=== PATIENT | male | born 1960 | race Caucasian/White ===

== ENCOUNTER 2021-01-17 09:22 | Inpatient (IN) | payer MEDICAID ==
[~2021-01-17] VITALS: Ht 167.6 cm; Wt 93.9 kg
[~2021-01-17 09:22] MED LIST: LISI10TA27 PO; METF-436 PO; METF-950 PO
[2021-01-17 09:54] LABS: BASOPHILS # (AUTO) 0.1 X10'3 (0-0.2); BASOPHILS % (AUTO) 0.8 % (0-1); EOSINOPHILS # (AUTO) 0.1 X10'3 (0-0.9); EOSINOPHILS % (AUTO) 1.7 % (0-6); HEMOGLOBIN 15.2 g/dl (14.0-17.9); LYMPHOCYTES # (AUTO) 0.8 X10'3 (1.1-4.8); LYMPHOCYTES % (AUTO) 11.2 % (21-51); MEAN CORPUSCULAR HEMOGLOBIN 30.3 PG (27.0-31.0); MEAN CORPUSCULAR HGB CONC 32.3 g/dL (33.0-36.5); MEAN PLATELET VOLUME 8.1 FL (7.4-10.4); MONOCYTES # (AUTO) 0.7 X10'3 (0-0.9); MONOCYTES % (AUTO) 9.2 % (2-12); NEUTROPHILS # (AUTO) 5.7 X10'3 (1.8-7.7); NEUTROPHILS % (AUTO) 77.1 % (42-75); PLATELET COUNT 246 X10'3 (140-440); RED CELL DISTRIBUTION WIDTH 15.2 % (11.5-14.5); WHITE BLOOD COUNT 7.4 X10'3 (4.5-11.0)
[2021-01-17 10:08] LABS: ALANINE AMINOTRANSFERASE 31 U/L (12-78); ALBUMIN 3.7 G/DL (3.4-5.0); ALBUMIN/GLOBULIN RATIO 0.9 (1.1-1.5); ALKALINE PHOSPHATASE 105 IU/L (46-116); ANION GAP 12 (8-16); ASPARTATE AMINO TRANSFERASE 40 U/L (10-37); BILIRUBIN,TOTAL 1.2 MG/DL (0.1-1.0); BLOOD UREA NITROGEN 21 MG/DL (7-18); BUN/CREATININE RATIO 17.6 (5.4-32.0); CALCIUM 8.3 MG/DL (8.5-10.1); CHLORIDE 106 MMOL/L (99-107); CREATININE 1.19 MG/DL (0.60-1.10); GLUCOSE 135 MG/DL (70-104); SODIUM 144 MMOL/L (135-145); TOTAL CARBON DIOXIDE 26.3 MMOL/L (24-32); TOTAL PROTEIN 7.6 G/DL (6.4-8.2); eGFR 63 ML/MIN
[2021-01-17] MEDS ORDERED: nitroGLYCERIN 0.1mg/hour patch TD STA (10:26)
[2021-01-17] MEDS ORDERED: aspirin 325mg tablet PO ONE (10:30)
[2021-01-17] MEDS ORDERED: furosemide 10 MG/1 ML 10ml inj IV ONE (10:40)
[2021-01-17] MEDS ORDERED: magnesium 4gm in 100ml NS 100 ML IV PRN (11:50)
[2021-01-17] MEDS ORDERED: mag hydrox/Alum hydrox/simeth 30ml oral suspension PO PRN (11:50)
[2021-01-17] MEDS ORDERED: dextrose ORAL solution 15 GM/59 ML bottle PO PRN ×2 (11:50)
[2021-01-17] MEDS ORDERED: MESSAGE TO PHARMACY PO ONE (11:50)
[2021-01-17] MEDS ORDERED: magnesium hydroxide 30ml (MOM) UD suspension PO PRN (11:50)
[2021-01-17] MEDS ORDERED: HYDROcodone/acetaminophen 5mg/325mg tablet PO PRN (11:50)
[2021-01-17] MEDS ORDERED: HYDROcodone/acetaminophen 10/325mg tab PO PRN (11:50)
[2021-01-17] MEDS ORDERED: ondansetron/PF 4mg/2ml inj IV PRN (11:50)
[2021-01-17] MEDS ORDERED: magnesium 2GM in 50ml NS 50 ML IV PRN (11:50)
[2021-01-17] MEDS ORDERED: glucagon, human recombinant 1mg kit SUBCUT PRN (11:50)
[2021-01-17] MEDS ORDERED: potassium Cl 20 mEq SR tablet PO PRN (11:50)
[2021-01-17] MEDS ORDERED: magnesium Cl slow-release 64mg tablet PO PRN (11:50)
[2021-01-17] MEDS ORDERED: dextrose 50%-water 50ml dispensing syringe IV PRN ×2 (11:50)
[2021-01-17] MEDS ORDERED: insulin Lispro (HumaLOG) vial - multi-dose SQ SCH (11:50)
[2021-01-17] MEDS ORDERED: acetaminophen 325mg tablet PO PRN ×2 (11:50)
[2021-01-17] MEDS ORDERED: potassium Cl 40MEQ/1/2NS 520ml 520 ML IV PRN ×2 (11:50)
[2021-01-17 12:19] LABS: HEMOGLOBIN A1C 6.5 % (4.5-6.2)
[2021-01-17] MEDS ORDERED: METF-950 PO (12:23)
--- NOTE | 2021-01-17 14:06 | NUR ---
ECHO AT BEDSIDE
[2021-01-17 15:00] VITALS: BP 188/124
[2021-01-17 16:00] VITALS: BP 185/132
--- NOTE | 2021-01-17 16:00 | NUR ---
Dr Olivarez notified of B/P 188/929
[2021-01-17] MEDS: metoprolol tartrate 12.5mg (1/2 tablet) PO SCH ×2 (17:35→19:28)
[2021-01-17 18:00] VITALS: BP 176/128
--- NOTE | 2021-01-17 18:00 | NUR ---
b/p 190/143 Dr Olivarez notified
[2021-01-17 18:19] LABS: URINE AMPHETAMINE SCREEN NEGATIVE (Neg); URINE BARBITUATE SCREEN NEGATIVE (Neg); URINE BENZODIAZEPINES SCREEN NEGATIVE (Neg); URINE CANNABINOID SCREEN POSITIVE (Neg); URINE COCAINE SCREEN NEGATIVE (Neg); URINE METHADONE SCREEN NEGATIVE (Neg); URINE OPIATE SCREEN NEGATIVE (Neg); URINE PHENCYCLIDINE SCREEN NEGATIVE (Neg)
--- NOTE | 2021-01-17 18:23 | NUR ---
Patient in room PCU 3024B. I have received report from ISSAC Delgado and had the opportunity to ask questions and assume patient care.
[2021-01-17] MEDS: K and/or MAG REPLACEMENT MC SCH (19:17)
[2021-01-17 19:20] VITALS: BP 162/94
[2021-01-17] MEDS: furosemide 40mg/4ml inj IV SCH (19:28)
[2021-01-17] MEDS ORDERED: metoprolol tartrate 12.5mg (1/2 tablet) PO SCH (20:00)
[2021-01-17] MEDS: insulin glargine (Lantus) pen - multi-dose SQ SCH (21:00)
[2021-01-17] MEDS ORDERED: temazepam 15mg capsule PO PRN (21:00)
[2021-01-17 22:00] VITALS: BP 151/89
[2021-01-17 22:21] LABS: PARTIAL THROMBOPLASTIN TIME 30 SECONDS (22-32)
[2021-01-18] VITALS (10 sets, daily range): BP systolic 116–165; BP diastolic 98–121
[2021-01-18 06:25] LABS: BASOPHILS # (AUTO) 0.1 X10'3 (0-0.2); BASOPHILS % (AUTO) 1.1 % (0-1); EOSINOPHILS # (AUTO) 0.2 X10'3 (0-0.9); EOSINOPHILS % (AUTO) 3.3 % (0-6); HEMATOCRIT 43.2 % (42.0-52.0); HEMOGLOBIN 14.2 g/dl (14.0-17.9); LYMPHOCYTES # (AUTO) 0.9 X10'3 (1.1-4.8); LYMPHOCYTES % (AUTO) 18.3 % (21-51); MEAN CORPUSCULAR HEMOGLOBIN 30.1 PG (27.0-31.0); MEAN CORPUSCULAR HGB CONC 32.8 g/dL (33.0-36.5); MEAN CORPUSCULAR VOLUME 91.7 FL (78-98); MEAN PLATELET VOLUME 8.3 FL (7.4-10.4); MONOCYTES # (AUTO) 0.6 X10'3 (0-0.9); MONOCYTES % (AUTO) 12.3 % (2-12); NEUTROPHILS # (AUTO) 3.3 X10'3 (1.8-7.7); PLATELET COUNT 203 X10'3 (140-440); RED BLOOD COUNT 4.71 X10'6 (4.70-6.10); RED CELL DISTRIBUTION WIDTH 15.1 % (11.5-14.5); WHITE BLOOD COUNT 5.1 X10'3 (4.5-11.0)
--- NOTE | 2021-01-18 06:44 | NUR ---
Problems reprioritized. Patient report given, questions answered & plan of care reviewed with ISSAC Cedillo.
--- NOTE | 2021-01-18 06:52 | NUR ---
Patient in room PCU 3024. I have received report from Julia DAVENPORT and had the opportunity to ask questions and assume patient care.
[2021-01-18 06:58] LABS: ALANINE AMINOTRANSFERASE 26 U/L (12-78); ALBUMIN 3.2 G/DL (3.4-5.0); ALKALINE PHOSPHATASE 87 IU/L (46-116); ANION GAP 10 (8-16); ASPARTATE AMINO TRANSFERASE 27 U/L (10-37); BILIRUBIN,TOTAL 1.4 MG/DL (0.1-1.0); BLOOD UREA NITROGEN 18 MG/DL (7-18); BUN/CREATININE RATIO 16.4 (5.4-32.0); CALCIUM 8.5 MG/DL (8.5-10.1); CHLORIDE 107 MMOL/L (99-107); CHOL/HDL RATIO 4.6 (0.00-4.99); CHOLESTEROL 119 MG/DL (0-200); GLUCOSE 108 MG/DL (70-104); HDL CHOLESTEROL 26 MG/DL (35-60); LDL CHOLESTEROL 86 MG/DL (50-100); MAGNESIUM 1.9 MG/DL (1.5-2.4); POTASSIUM 3.3 MMOL/L (3.5-5.1); SODIUM 143 MMOL/L (135-145); TOTAL CARBON DIOXIDE 26.4 MMOL/L (24-32); TOTAL PROTEIN 6.5 G/DL (6.4-8.2); TRIGLYCERIDES 57 MG/DL (20-135); eGFR 69 ML/MIN
[2021-01-18] MEDS ORDERED: lisinopril 20mg tablet PO SCH (08:00)
[2021-01-18] MEDS: K and/or MAG REPLACEMENT MC SCH ×2 (08:00→19:52)
[2021-01-18] MEDS ORDERED: aspirin 325mg tablet PO SCH (08:30)
[2021-01-18] MEDS: aspirin 81mg tablet.DR PO SCH (09:38)
[2021-01-18] MEDS: potassium Cl 20 mEq SR tablet PO PRN ×3 (09:39→19:53)
[2021-01-18] MEDS: furosemide 40mg/4ml inj IV SCH ×2 (09:39→19:51)
[2021-01-18] MEDS: enoxaparin 40mg/0.4ml syringe SUBCUT SCH (09:39)
--- NOTE | 2021-01-18 11:00 | NUR ---
Dr Mclain at bedside, report given re: pt's blood pressure trend - high at times, breath sounds diminished at bases, abdomen distended/firm, pt c/o mild lightheadedness after ambulating approx 300 ft and returned to room. Orders received. Will continue to monitor.
--- NOTE | 2021-01-18 17:09 | NUR ---
PAGER ID: [phone] MESSAGE: re: [email or web address], Jon Tavarez Pt's orthostatic BPs for 1500: 143/113 HR 76 (lying), 116/110,HR 78 (sitting), 163/121 HR 82 (standing). manual recheck 150/110 HR 78 (lying). Orders? thank you, Nguyen [id number]
[2021-01-18] MEDS ORDERED: lisinopril 20mg tablet PO ONE (17:40)
[2021-01-18] MEDS ORDERED: hydrALAZINE 20mg/ml inj. IV PRN (17:40)
--- NOTE | 2021-01-18 17:40 | NUR ---
Phone call from Dr Mclain - further discussion re: pt's BP's and orthostatics. stated he would look at meds. orders PRN. Will continue to monitor.
--- NOTE | 2021-01-18 18:36 | NUR ---
Problems reprioritized. Patient report given, questions answered & plan of care reviewed with Stephenie DAVENPORT.
--- NOTE | 2021-01-18 18:43 | NUR ---
I have received report from Nguyen DAVENPORT and had the opportunity to ask questions and assume patient care.
[2021-01-18] MEDS: carVEDilol 3.125mg tablet PO SCH (19:53)
[2021-01-18] MEDS: insulin glargine (Lantus) pen - multi-dose SQ SCH (21:00)
[2021-01-19] VITALS (9 sets, daily range): BP systolic 137–171; BP diastolic 81–124
--- NOTE | 2021-01-19 06:25 | NUR ---
Problems reprioritized. Patient report given, questions answered & plan of care reviewed with Romina DAVENPORT.
[2021-01-19 07:05] LABS: BASOPHILS % (AUTO) 0.9 % (0-1); EOSINOPHILS # (AUTO) 0.2 X10'3 (0-0.9); EOSINOPHILS % (AUTO) 3.1 % (0-6); HEMATOCRIT 43.1 % (42.0-52.0); HEMOGLOBIN 14.3 g/dl (14.0-17.9); LYMPHOCYTES # (AUTO) 0.9 X10'3 (1.1-4.8); LYMPHOCYTES % (AUTO) 17.5 % (21-51); MEAN CORPUSCULAR HEMOGLOBIN 30.3 PG (27.0-31.0); MEAN CORPUSCULAR HGB CONC 33.2 g/dL (33.0-36.5); MEAN CORPUSCULAR VOLUME 91.3 FL (78-98); MEAN PLATELET VOLUME 8.4 FL (7.4-10.4); MONOCYTES # (AUTO) 0.6 X10'3 (0-0.9); MONOCYTES % (AUTO) 11.9 % (2-12); NEUTROPHILS # (AUTO) 3.4 X10'3 (1.8-7.7); NEUTROPHILS % (AUTO) 66.6 % (42-75); PLATELET COUNT 199 X10'3 (140-440); RED BLOOD COUNT 4.72 X10'6 (4.70-6.10); RED CELL DISTRIBUTION WIDTH 15.1 % (11.5-14.5); WHITE BLOOD COUNT 5.2 X10'3 (4.5-11.0)
[2021-01-19] MEDS: carVEDilol 3.125mg tablet PO SCH ×2 (07:14→21:24)
[2021-01-19] MEDS: aspirin 81mg tablet.DR PO SCH (07:14)
[2021-01-19] MEDS: lisinopril 20mg tablet PO SCH (07:15)
[2021-01-19] MEDS: enoxaparin 40mg/0.4ml syringe SUBCUT SCH (07:16)
[2021-01-19] MEDS: furosemide 40mg/4ml inj IV SCH ×2 (07:17→21:23)
[2021-01-19 07:18] LABS: ALANINE AMINOTRANSFERASE 24 U/L (12-78); ALBUMIN 3.3 G/DL (3.4-5.0); ALBUMIN/GLOBULIN RATIO 0.9 (1.1-1.5); ALKALINE PHOSPHATASE 92 IU/L (46-116); ANION GAP 7 (8-16); ASPARTATE AMINO TRANSFERASE 23 U/L (10-37); BILIRUBIN,TOTAL 1.3 MG/DL (0.1-1.0); BLOOD UREA NITROGEN 22 MG/DL (7-18); BUN/CREATININE RATIO 17.9 (5.4-32.0); CALCIUM 8.8 MG/DL (8.5-10.1); CHLORIDE 106 MMOL/L (99-107); CREATININE 1.23 MG/DL (0.60-1.10); GLUCOSE 109 MG/DL (70-104); MAGNESIUM 1.9 MG/DL (1.5-2.4); POTASSIUM 3.4 MMOL/L (3.5-5.1); SODIUM 143 MMOL/L (135-145); TOTAL CARBON DIOXIDE 29.6 MMOL/L (24-32); TOTAL PROTEIN 6.9 G/DL (6.4-8.2); eGFR 60 ML/MIN
[2021-01-19] MEDS: K and/or MAG REPLACEMENT MC SCH ×2 (08:54→20:00)
[2021-01-19] MEDS: potassium Cl 20 mEq SR tablet PO PRN ×3 (08:54→17:28)
[2021-01-19] MEDS: hydrALAZINE 25 MG tablet PO SCH ×2 (09:55→16:05)
--- NOTE | 2021-01-19 12:44 | NUR ---
blood pressure still high. Dr Calvin aware. Hydralizine was given as scheduled med earlier in day so he said to wait on giving iv prn hydralizine and he will make some changes on emar to help. Recheck bp is 171/112, i will page him with this info.
[2021-01-19] MEDS ORDERED: carVEDilol 3.125mg tablet PO ONE (12:50)
--- NOTE | 2021-01-19 18:34 | NUR ---
Report given to Roni DAVENPORT. All questions answered. Pt in bed watching tv
[2021-01-19] MEDS: insulin glargine (Lantus) pen - multi-dose SQ SCH (21:00)
[2021-01-20 02:00] VITALS: BP 138/91
[2021-01-20] MEDS: hydrALAZINE 25 MG tablet PO SCH ×2 (02:51→07:53)
[2021-01-20 07:00] VITALS: BP 164/119
[2021-01-20] MEDS: lisinopril 20mg tablet PO SCH (07:52)
[2021-01-20] MEDS: carVEDilol 3.125mg tablet PO SCH (07:53)
[2021-01-20] MEDS: aspirin 81mg tablet.DR PO SCH (07:53)
[2021-01-20] MEDS: enoxaparin 40mg/0.4ml syringe SUBCUT SCH (07:54)
[2021-01-20] MEDS: furosemide 40mg/4ml inj IV SCH (07:56)
[2021-01-20 08:00] VITALS: BP_SYST 133; BP_SYST 135; BP_SYST 140; BP_DIAS 82; BP_DIAS 92; BP_DIAS 97
[2021-01-20] MEDS: K and/or MAG REPLACEMENT MC SCH (08:00)
[2021-01-20 08:07] LABS: BASOPHILS # (AUTO) 0.1 X10'3 (0-0.2); BASOPHILS % (AUTO) 1.2 % (0-1); EOSINOPHILS # (AUTO) 0.2 X10'3 (0-0.9); EOSINOPHILS % (AUTO) 4.4 % (0-6); HEMATOCRIT 41.5 % (42.0-52.0); HEMOGLOBIN 13.7 g/dl (14.0-17.9); LYMPHOCYTES # (AUTO) 0.8 X10'3 (1.1-4.8); LYMPHOCYTES % (AUTO) 17.3 % (21-51); MEAN CORPUSCULAR HEMOGLOBIN 30.3 PG (27.0-31.0); MEAN CORPUSCULAR VOLUME 91.7 FL (78-98); MEAN PLATELET VOLUME 8.3 FL (7.4-10.4); MONOCYTES # (AUTO) 0.6 X10'3 (0-0.9); MONOCYTES % (AUTO) 13.9 % (2-12); NEUTROPHILS # (AUTO) 2.7 X10'3 (1.8-7.7); NEUTROPHILS % (AUTO) 63.2 % (42-75); PLATELET COUNT 183 X10'3 (140-440); RED BLOOD COUNT 4.52 X10'6 (4.70-6.10); RED CELL DISTRIBUTION WIDTH 15.3 % (11.5-14.5); WHITE BLOOD COUNT 4.3 X10'3 (4.5-11.0)
[2021-01-20 08:18] LABS: ALANINE AMINOTRANSFERASE 20 U/L (12-78); ALBUMIN 3.2 G/DL (3.4-5.0); ALBUMIN/GLOBULIN RATIO 0.9 (1.1-1.5); ALKALINE PHOSPHATASE 94 IU/L (46-116); ANION GAP 4 (8-16); ASPARTATE AMINO TRANSFERASE 24 U/L (10-37); BILIRUBIN,TOTAL 1.4 MG/DL (0.1-1.0); BLOOD UREA NITROGEN 24 MG/DL (7-18); BUN/CREATININE RATIO 18.6 (5.4-32.0); CALCIUM 8.3 MG/DL (8.5-10.1); CHLORIDE 106 MMOL/L (99-107); CREATININE 1.29 MG/DL (0.60-1.10); GLUCOSE 115 MG/DL (70-104); MAGNESIUM 2.1 MG/DL (1.5-2.4); POTASSIUM 3.9 MMOL/L (3.5-5.1); SODIUM 143 MMOL/L (135-145); TOTAL CARBON DIOXIDE 32.8 MMOL/L (24-32); TOTAL PROTEIN 6.6 G/DL (6.4-8.2); eGFR 57 ML/MIN
[2021-01-20 11:00] VITALS: BP 155/112
[2021-01-20] MEDS ORDERED: HYDR-4069 PO (11:45)
[2021-01-20] MEDS ORDERED: ASPI-1071 PO (11:45)
[2021-01-20] MEDS ORDERED: LISI20TA28 PO (11:45)
[2021-01-20] MEDS ORDERED: METF-950 PO (11:45)
[2021-01-20] MEDS ORDERED: COR3.125T PO (11:45)
[2021-01-20] MEDS ORDERED: FURO20TA4 PO (11:45)
[2021-01-20] MEDS ORDERED: SPIR25TA5 PO (11:46)
== END 2021-01-20 13:28 | disposition home or self-care (01) | DRG 190 ==
LOC: ER 09:23 → ED HOLD 11:46 → PCU 3S 14:53
PROVIDERS: ADMIT Family Medicine; ATTEND Family Medicine
DX: I21.4 Non-ST elevation (NSTEMI) myocardial infarction (principal); I50.21 Acute systolic (congestive) heart failure; E11.22 Type 2 diabetes mellitus with diabetic chronic kidney disease; I42.9 Cardiomyopathy, unspecified; I13.0 Hypertensive heart and chronic kidney disease with heart failure and stage 1 through stage 4 chronic kidney disease, or unspecified chronic kidney disease; F17.210 Nicotine dependence, cigarettes, uncomplicated; Z60.2 Problems related to living alone; N18.9 Chronic kidney disease, unspecified; Z20.822 Contact with and (suspected) exposure to COVID-19; Z59.0 Homelessness; Z82.3 Family history of stroke; Z82.49 Family history of ischemic heart disease and other diseases of the circulatory system; Z83.3 Family history of diabetes mellitus; Z79.899 Other long term (current) drug therapy; Z71.6 Tobacco abuse counseling
CPT/HCPCS: 36415; 71045; 80053; 80061; 80305; 82948; 83036; 83735; 83880; 84443; 84484; 85025; 85610; 85730; 87081; 87635; 93005; 93306; 93975; 96374; 96375; 99285; C9803; G0378; J1650; J1815; J1940

== ENCOUNTER 2021-04-07 19:24 | Inpatient (IN) | payer MEDICAID ==
[~2021-04-07] VITALS: Ht 167.6 cm; Wt 94.1 kg
[~2021-04-07 19:24] MED LIST changes: +ASPI-1071 PO; +COR3.125T PO; +FURO20TA4 PO; +HYDR-4069 PO; -LISI10TA27 PO; +LISI20TA28 PO; +SPIR25TA5 PO
[2021-04-07] MEDS ORDERED: furosemide 40mg/4ml inj IV ONE (20:25)
[2021-04-07 20:28] LABS: BASOPHILS # (AUTO) 0.1 X10'3 (0-0.2); BASOPHILS % (AUTO) 1.4 % (0-1); EOSINOPHILS # (AUTO) 0.2 X10'3 (0-0.9); EOSINOPHILS % (AUTO) 4.4 % (0-6); HEMATOCRIT 40.7 % (42.0-52.0); HEMOGLOBIN 13.4 g/dl (14.0-17.9); LYMPHOCYTES # (AUTO) 0.7 X10'3 (1.1-4.8); LYMPHOCYTES % (AUTO) 13.5 % (21-51); MEAN CORPUSCULAR HEMOGLOBIN 28.3 PG (27.0-31.0); MEAN CORPUSCULAR HGB CONC 32.8 g/dL (33.0-36.5); MEAN CORPUSCULAR VOLUME 86.1 FL (78-98); MEAN PLATELET VOLUME 7.9 FL (7.4-10.4); MONOCYTES # (AUTO) 0.7 X10'3 (0-0.9); MONOCYTES % (AUTO) 12.2 % (2-12); NEUTROPHILS # (AUTO) 3.8 X10'3 (1.8-7.7); NEUTROPHILS % (AUTO) 68.5 % (42-75); PLATELET COUNT 134 X10'3 (140-440); RED BLOOD COUNT 4.73 X10'6 (4.70-6.10); RED CELL DISTRIBUTION WIDTH 18.9 % (11.5-14.5); WHITE BLOOD COUNT 5.5 X10'3 (4.5-11.0)
[2021-04-07 20:50] LABS: ALANINE AMINOTRANSFERASE 17 U/L (12-78); ALBUMIN 3.2 G/DL (3.4-5.0); ALBUMIN/GLOBULIN RATIO 0.9 (1.1-1.5); ALKALINE PHOSPHATASE 90 IU/L (46-116); ANION GAP 8 (8-16); ASPARTATE AMINO TRANSFERASE 24 U/L (10-37); BILIRUBIN,TOTAL 1.8 MG/DL (0.1-1.0); BLOOD UREA NITROGEN 20 MG/DL (7-18); BUN/CREATININE RATIO 15.5 (5.4-32.0); CALCIUM 8.4 MG/DL (8.5-10.1); CHLORIDE 108 MMOL/L (99-107); CREATININE 1.29 MG/DL (0.60-1.10); GLUCOSE 126 MG/DL (70-104); POTASSIUM 4.4 MMOL/L (3.5-5.1); SODIUM 144 MMOL/L (135-145); TOTAL PROTEIN 6.8 G/DL (6.4-8.2); eGFR 57 ML/MIN
[2021-04-07 20:56] LABS: TROPONIN I < 0.04 NG/ML (0.0-0.05)
[2021-04-07] MEDS ORDERED: ondansetron/PF 4mg/2ml inj IV PRN (22:25)
[2021-04-07] MEDS ORDERED: magnesium hydroxide 30ml (MOM) UD suspension PO PRN (22:25)
[2021-04-07] MEDS ORDERED: acetaminophen 325mg tablet PO PRN (22:25)
[2021-04-07] MEDS ORDERED: potassium Cl 20 mEq SR tablet PO PRN ×2 (22:25)
[2021-04-07] MEDS ORDERED: potassium Cl 40MEQ/1/2NS 520ml 520 ML IV PRN ×2 (22:25)
[2021-04-07] MEDS ORDERED: mag hydrox/Alum hydrox/simeth 30ml oral suspension PO PRN (22:25)
[2021-04-07] MEDS ORDERED: MESSAGE TO PHARMACY PO ONE (22:30)
[2021-04-07] MEDS ORDERED: insulin Lispro (HumaLOG) vial - multi-dose SQ SCH (22:30)
[2021-04-07] MEDS ORDERED: dextrose ORAL solution 15 GM/59 ML bottle PO PRN ×2 (22:30)
[2021-04-07] MEDS ORDERED: glucagon, human recombinant 1mg kit SUBCUT PRN (22:30)
[2021-04-07] MEDS ORDERED: dextrose 50%-water 50ml dispensing syringe IV PRN ×2 (22:30)
[2021-04-07 23:09] LABS: HEMOGLOBIN A1C 7.5 % (4.5-6.2)
[2021-04-08] MEDS: carVEDilol 12.5mg tablet PO SCH ×3 (01:06→20:31)
[2021-04-08] MEDS ORDERED: LISI-790 PO (04:12)
[2021-04-08] MEDS ORDERED: SPIR25TA5 PO (04:13)
[2021-04-08] MEDS ORDERED: CARV-50 PO (04:16)
[2021-04-08] MEDS ORDERED: FURO-150 PO (04:18)
[2021-04-08] MEDS ORDERED: ASPI-1397 PO (04:19)
[2021-04-08] MEDS ORDERED: FAMO20TA8 PO (04:19)
[2021-04-08] MEDS ORDERED: APIX5TAB3 PO (04:19)
[2021-04-08 04:59] LABS: BASOPHILS # (AUTO) 0.1 X10'3 (0-0.2); BASOPHILS % (AUTO) 1.2 % (0-1); EOSINOPHILS # (AUTO) 0.2 X10'3 (0-0.9); EOSINOPHILS % (AUTO) 4.4 % (0-6); HEMATOCRIT 40.8 % (42.0-52.0); HEMOGLOBIN 13.4 g/dl (14.0-17.9); LYMPHOCYTES # (AUTO) 0.8 X10'3 (1.1-4.8); LYMPHOCYTES % (AUTO) 14.7 % (21-51); MEAN CORPUSCULAR HEMOGLOBIN 28.3 PG (27.0-31.0); MEAN CORPUSCULAR HGB CONC 32.8 g/dL (33.0-36.5); MEAN CORPUSCULAR VOLUME 86.4 FL (78-98); MEAN PLATELET VOLUME 7.9 FL (7.4-10.4); MONOCYTES # (AUTO) 0.6 X10'3 (0-0.9); MONOCYTES % (AUTO) 10.3 % (2-12); NEUTROPHILS # (AUTO) 3.9 X10'3 (1.8-7.7); NEUTROPHILS % (AUTO) 69.4 % (42-75); PLATELET COUNT 137 X10'3 (140-440); RED BLOOD COUNT 4.72 X10'6 (4.70-6.10); RED CELL DISTRIBUTION WIDTH 18.9 % (11.5-14.5); WHITE BLOOD COUNT 5.6 X10'3 (4.5-11.0)
[2021-04-08 05:15] LABS: ALANINE AMINOTRANSFERASE 15 U/L (12-78); ALBUMIN 3.2 G/DL (3.4-5.0); ALBUMIN/GLOBULIN RATIO 0.9 (1.1-1.5); ALKALINE PHOSPHATASE 89 IU/L (46-116); ANION GAP 10 (8-16); ASPARTATE AMINO TRANSFERASE 20 U/L (10-37); BILIRUBIN,TOTAL 1.8 MG/DL (0.1-1.0); BLOOD UREA NITROGEN 20 MG/DL (7-18); BUN/CREATININE RATIO 15.5 (5.4-32.0); CALCIUM 8.2 MG/DL (8.5-10.1); CHLORIDE 107 MMOL/L (99-107); CREATININE 1.29 MG/DL (0.60-1.10); GLUCOSE 120 MG/DL (70-104); POTASSIUM 3.6 MMOL/L (3.5-5.1); SODIUM 144 MMOL/L (135-145); TOTAL CARBON DIOXIDE 27.5 MMOL/L (24-32); TOTAL PROTEIN 6.6 G/DL (6.4-8.2); eGFR 57 ML/MIN
[2021-04-08 05:22] LABS: PLATELET ESTIMATE DECREASED
[2021-04-08 05:23] LABS: ANISOCYTOSIS 1+; BURR CELLS 1+; ELLIPTOCYTES 1+; HYPOCHROMASIA 1+
[2021-04-08 07:44] VITALS: BP 169/126
[2021-04-08] MEDS: furosemide 10 MG/1 ML 10ml inj IV SCH ×2 (07:52→20:34)
[2021-04-08] MEDS ORDERED: heparin, porcine 5000 units/ml vial SQ SCH (08:00)
[2021-04-08] MEDS: K and/or MAG REPLACEMENT MC SCH ×2 (08:00→20:00)
--- NOTE | 2021-04-08 08:39 | NUR ---
PT ARRIVED TO UNIT AND ORIENTED. VSS. ASSESSMENT DONE. MRSA DONE AND SENT TO LAB. BREAKFAST ORDERED FOR PT. WILL CONTINUE TO MONITOR
[2021-04-08 11:00] VITALS: BP 162/113
--- NOTE | 2021-04-08 12:17 | NUR ---
Pt with T2DM with A1c of 7.5%, up from 6.5% in December of this year per records. Pt seen at bedside for written and verbal DM education. Pt states he self manages his diabetes and doesn't see an MD then reports seeing an MD a few days ago for DM management. Pt states he takes his Metformin per rx without difficulties. Pt reports checking his BG levels "every once in awhile" and states his BG levels are well controlled and in a good range as to not have any s/s of high blood sugar, per pt this number is in the 220s. RD educated pt on A1c with recommended BG range and encouraged pt to check his blood sugars more frequently. RD contact information provided and pt encouraged to reach out for further questions. Pt endorses a good appetite though states he isn't getting full from meals. Pt agrees to double eggs WB and double meat BIDLD, d/w dietary. Meal preferences for dinner tonight and lunch tomorrow were also obtained and d/w dietary. Pt educated on menu process. Pt denies food allergies, difficulty chewing/swallowing, or constipation. Per pt LBM was this morning and was good in size. Will continue to follow. Addendum: 04/08/21 at [address] Amended: Links added.
[2021-04-08 15:00] VITALS: BP 160/114
[2021-04-08 18:00] VITALS: BP 159/89
--- NOTE | 2021-04-08 18:10 | NUR ---
Patient in room [facility] 3018. I have received report from ISSAC Padilla and had the opportunity to ask questions and assume patient care. Addendum: 04/09/21 at 0626 by Joel Frazier RN Report was given to ISSAC Parker
[2021-04-08] MEDS: famotidine 20mg tablet PO SCH (20:32)
[2021-04-08] MEDS: apixaban 5mg tablet PO SCH (20:32)
[2021-04-08 22:00] VITALS: BP 153/101
[2021-04-09 02:30] VITALS: BP 165/108
[2021-04-09 06:00] VITALS: BP 155/104
--- NOTE | 2021-04-09 06:26 | NUR ---
Problems reprioritized. Patient report given, questions answered & plan of care reviewed with ISSAC Parker.
[2021-04-09 07:10] LABS: BASOPHILS # (AUTO) 0.1 X10'3 (0-0.2); BASOPHILS % (AUTO) 1.2 % (0-1); EOSINOPHILS # (AUTO) 0.2 X10'3 (0-0.9); EOSINOPHILS % (AUTO) 4.1 % (0-6); HEMATOCRIT 41.1 % (42.0-52.0); HEMOGLOBIN 13.4 g/dl (14.0-17.9); LYMPHOCYTES # (AUTO) 0.7 X10'3 (1.1-4.8); LYMPHOCYTES % (AUTO) 12.1 % (21-51); MEAN CORPUSCULAR HEMOGLOBIN 28.1 PG (27.0-31.0); MEAN CORPUSCULAR HGB CONC 32.5 g/dL (33.0-36.5); MEAN CORPUSCULAR VOLUME 86.4 FL (78-98); MEAN PLATELET VOLUME 7.6 FL (7.4-10.4); MONOCYTES # (AUTO) 0.6 X10'3 (0-0.9); MONOCYTES % (AUTO) 9.9 % (2-12); NEUTROPHILS # (AUTO) 4.1 X10'3 (1.8-7.7); NEUTROPHILS % (AUTO) 72.7 % (42-75); PLATELET COUNT 128 X10'3 (140-440); RED BLOOD COUNT 4.76 X10'6 (4.70-6.10); RED CELL DISTRIBUTION WIDTH 18.7 % (11.5-14.5); WHITE BLOOD COUNT 5.7 X10'3 (4.5-11.0)
[2021-04-09] MEDS: famotidine 20mg tablet PO SCH (07:12)
[2021-04-09 07:13] VITALS: BP_SYST 155
[2021-04-09] MEDS: furosemide 10 MG/1 ML 10ml inj IV SCH (07:13)
[2021-04-09] MEDS: carVEDilol 12.5mg tablet PO SCH (07:13)
[2021-04-09] MEDS: apixaban 5mg tablet PO SCH (07:15)
[2021-04-09] MEDS: K and/or MAG REPLACEMENT MC SCH (07:17)
[2021-04-09 07:33] LABS: ALANINE AMINOTRANSFERASE 18 U/L (12-78); ALBUMIN 3.4 G/DL (3.4-5.0); ALKALINE PHOSPHATASE 92 IU/L (46-116); ANION GAP 8 (8-16); ASPARTATE AMINO TRANSFERASE 21 U/L (10-37); BILIRUBIN,TOTAL 2.4 MG/DL (0.1-1.0); BLOOD UREA NITROGEN 20 MG/DL (7-18); BUN/CREATININE RATIO 16.7 (5.4-32.0); CALCIUM 8.3 MG/DL (8.5-10.1); CHLORIDE 101 MMOL/L (99-107); GLUCOSE 103 MG/DL (70-104); POTASSIUM 3.3 MMOL/L (3.5-5.1); SODIUM 141 MMOL/L (135-145); TOTAL CARBON DIOXIDE 31.8 MMOL/L (24-32); TOTAL PROTEIN 6.8 G/DL (6.4-8.2); eGFR 62 ML/MIN
[2021-04-09] MEDS ORDERED: aspirin 81mg tablet.DR PO SCH (08:00)
[2021-04-09] MEDS ORDERED: lisinopril 5mg tablet PO SCH (08:00)
[2021-04-09] MEDS ORDERED: spironolactone 25 MG tablet PO SCH (08:00)
[2021-04-09] MEDS ORDERED: CARV-50 PO (08:58)
[2021-04-09] MEDS ORDERED: FURO-150 PO (08:58)
--- NOTE | 2021-04-09 09:30 | NUR ---
awaiting social security benefits interviewer pritesh before pt is discharged
--- NOTE | 2021-04-09 10:29 | NUR ---
DISCHARGE TEACHING DONE. ALL QUESTIONS ANSWERED. COPY OF SIGNED PAPER IN CHART. ELEMENTARY EDUCATION TUTOR MET WITH PT. IV AND TELE DISCONTINUED. NO S/S OF COMPLICATIONS. ALL BELONGINGS WITH PT. MEDICATIONS PICKED UP FROM [facility] AND GIVEN TO PT. PT WALKED DOWN TO LOBBY AND LEFT ON FOOT.
== END 2021-04-09 10:15 | disposition home or self-care (01) | DRG 194 ==
LOC: ER 19:24 → ED HOLD 22:22 → PCU 3S 04-08 07:40
PROVIDERS: ADMIT Internal Medicine; ATTEND Internal Medicine
DX: I13.0 Hypertensive heart and chronic kidney disease with heart failure and stage 1 through stage 4 chronic kidney disease, or unspecified chronic kidney disease (principal); E11.22 Type 2 diabetes mellitus with diabetic chronic kidney disease; I42.9 Cardiomyopathy, unspecified; I50.23 Acute on chronic systolic (congestive) heart failure; N18.9 Chronic kidney disease, unspecified; Z59.0 Homelessness; Z82.49 Family history of ischemic heart disease and other diseases of the circulatory system; Z83.3 Family history of diabetes mellitus; Z91.14 Patient's other noncompliance with medication regimen; Z95.1 Presence of aortocoronary bypass graft
CPT/HCPCS: 36415; 71045; 80053; 82948; 83036; 83880; 84484; 85008; 85025; 87081; 93005; 96374; 97110; 97116; 97162; 99285; G0378; J1644; J1815; J1940

== ENCOUNTER 2021-09-09 12:15 | Inpatient (IN) | payer MEDICAID ==
[~2021-09-09] VITALS: Ht 167.6 cm; Wt 106.0 kg
[~2021-09-09 12:15] MED LIST changes: +APIX5TAB3 PO; -ASPI-1071 PO; +ASPI-1397 PO; +CARV-50 PO; -COR3.125T PO; +FAMO20TA8 PO; +FURO-150 PO; -FURO20TA4 PO; -HYDR-4069 PO; -LISI20TA28 PO; +LISI5TAB22 PO; -METF-950 PO
[2021-09-09] MEDS ORDERED: aspirin 81mg tab.chew PO ONE (13:20)
[2021-09-09 13:29] LABS: BASOPHILS % (AUTO) 0.9 % (0-1); EOSINOPHILS # (AUTO) 0.2 X10'3 (0-0.9); EOSINOPHILS % (AUTO) 4.3 % (0-6); HEMATOCRIT 38.3 % (42.0-52.0); HEMOGLOBIN 12.4 g/dl (14.0-17.9); LYMPHOCYTES # (AUTO) 0.5 X10'3 (1.1-4.8); LYMPHOCYTES % (AUTO) 11.5 % (21-51); MEAN CORPUSCULAR HEMOGLOBIN 29.3 PG (27.0-31.0); MEAN CORPUSCULAR HGB CONC 32.3 g/dL (33.0-36.5); MEAN CORPUSCULAR VOLUME 90.7 FL (78-98); MEAN PLATELET VOLUME 7.6 FL (7.4-10.4); MONOCYTES # (AUTO) 0.7 X10'3 (0-0.9); MONOCYTES % (AUTO) 15.3 % (2-12); PLATELET COUNT 177 X10'3 (140-440); RED BLOOD COUNT 4.22 X10'6 (4.70-6.10); RED CELL DISTRIBUTION WIDTH 17.6 % (11.5-14.5); WHITE BLOOD COUNT 4.4 X10'3 (4.5-11.0)
[2021-09-09] MEDS ORDERED: nitroGLYCERIN 0.4mg SUBLingual tab SL PRN (13:30)
[2021-09-09 13:53] LABS: ALANINE AMINOTRANSFERASE 34 U/L (12-78); ALBUMIN 3.2 G/DL (3.4-5.0); ALBUMIN/GLOBULIN RATIO 0.9 (1.1-1.5); ALKALINE PHOSPHATASE 84 IU/L (46-116); ANION GAP 10 (8-16); ASPARTATE AMINO TRANSFERASE 26 U/L (10-37); BILIRUBIN,TOTAL 1.6 MG/DL (0.1-1.0); BLOOD UREA NITROGEN 25 MG/DL (7-18); BUN/CREATININE RATIO 17.4 (5.4-32.0); CALCIUM 8.4 MG/DL (8.5-10.1); CHLORIDE 104 MMOL/L (99-107); CREATININE 1.44 MG/DL (0.60-1.10); GLUCOSE 133 MG/DL (70-104); POTASSIUM 3.9 MMOL/L (3.5-5.1); SODIUM 141 MMOL/L (135-145); TOTAL CARBON DIOXIDE 26.7 MMOL/L (24-32); TOTAL PROTEIN 6.8 G/DL (6.4-8.2); eGFR 50 ML/MIN
[2021-09-09 14:01] LABS: LYMPHOCYTES % (MANUAL) 11 % (21-51); MONOCYTES % (MANUAL) 15 % (2-12); NEUTROPHILS % (MANUAL) 70 % (42-75); TOTAL CELLS COUNTED 100
[2021-09-09 14:02] LABS: ANISOCYTOSIS 1+; PLATELET ESTIMATE NORMAL
[2021-09-09] MEDS ORDERED: furosemide 20MG tablet PO ONE (16:50)
--- NOTE | 2021-09-09 20:30 | NUR ---
DR DAVID CAME IN TO TALK TO PT AT BEDSIDE. HE GAVE VO FOR A BERNARD CATHETER IN PT.
--- NOTE | 2021-09-09 20:51 | NUR ---
DR DAVID HAD ORDERED BERNARD FOR URINARY RETENTION PT WAS COMPLAINING OF NOT BEING ABLE TO URINATE, DR DAVID GAVE ORDER IF PT UNABLE TO URINATE. WHEN I WALKED IN TO PLACE BERNARD ON PATIENT, PT SHOWED ME HIS URINAL WITH 350 CC OF FLUID AND STATED THAT HE FELT ALL BETTER NOT. BERNARD WILL NOT BE PLACED. URINE SPECIMENT COLLECTED AND DELIVERED TO SHIP LINER.
[2021-09-09] MEDS ORDERED: temazepam 15mg capsule PO PRN (21:00)
[2021-09-09 21:15] LABS: URINE AMPHETAMINE SCREEN NEGATIVE (Neg); URINE BARBITUATE SCREEN NEGATIVE (Neg); URINE BENZODIAZEPINES SCREEN NEGATIVE (Neg); URINE CANNABINOID SCREEN POSITIVE (Neg); URINE COCAINE SCREEN NEGATIVE (Neg); URINE METHADONE SCREEN NEGATIVE (Neg); URINE OPIATE SCREEN NEGATIVE (Neg); URINE PHENCYCLIDINE SCREEN NEGATIVE (Neg)
[2021-09-09 21:19] LABS: CLARITY,URINE SLIGHTLY CLOUDY (Clear); COLOR,URINE YELLOW (Yellow); GLUCOSE, URINE NEGATIVE (Neg); KETONES,URINE NEGATIVE (Neg); LEUKOCYTE ESTERASE ,URINE NEGATIVE (Neg); NITRITES, URINE NEGATIVE (Neg); OCCULT BLOOD,URINE NEGATIVE (Neg); PROTEIN,URINE 30 mg/dl (Neg); UROBILINOGEN,URINE 0.2 E.U/dL (0.2-1.0)
[2021-09-09 21:25] LABS: UA COLLECTION TYPE URINAL
[2021-09-09 21:36] LABS: BACTERIA,URINE NONE SEEN /HPF (Neg); RBC,URINE 0-2 /HPF (0-2); SQUAMOUS EPITHELIAL CELL,UR FEW /LPF (FEW); WBC,URINE 0-4 /HPF (0-4)
[2021-09-09] MEDS ORDERED: mag hydrox/Alum hydrox/simeth 30ml oral suspension PO PRN (23:55)
[2021-09-09] MEDS ORDERED: bisacodyl 10mg suppository rectal RC PRN (23:55)
[2021-09-09] MEDS ORDERED: morphine 2 MG/ML inj. syringe IV PRN (23:55)
[2021-09-09] MEDS ORDERED: magnesium hydroxide 30ml (MOM) UD suspension PO PRN (23:55)
[2021-09-09] MEDS ORDERED: ondansetron/PF 4mg/2ml inj IV PRN (23:55)
[2021-09-09] MEDS ORDERED: acetaminophen 325mg tablet PO PRN ×2 (23:55)
[2021-09-09] MEDS ORDERED: diphenhydrAMINE 50 mg/ml inj IV PRN (23:55)
[2021-09-09] MEDS ORDERED: ondansetron 4mg rapidly disintigrating tab PO PRN (23:55)
[2021-09-09] MEDS ORDERED: diphenhydrAMINE 25mg capsule PO PRN (23:55)
[2021-09-09] MEDS ORDERED: HYDROcodone/acetaminophen 5mg/325mg tablet PO PRN (23:55)
--- NOTE | 2021-09-10 00:24 | NUR ---
NOTED PT DESATS TO 87% WHILE SLEEPING. PLACED PT ON 2.5 LPM 02 NC.
[2021-09-10 01:03] LABS: BASOPHILS # (AUTO) 0.1 X10'3 (0-0.2); BASOPHILS % (AUTO) 1.2 % (0-1); EOSINOPHILS # (AUTO) 0.3 X10'3 (0-0.9); EOSINOPHILS % (AUTO) 4.9 % (0-6); HEMATOCRIT 40.4 % (42.0-52.0); HEMOGLOBIN 13.1 g/dl (14.0-17.9); LYMPHOCYTES # (AUTO) 0.6 X10'3 (1.1-4.8); LYMPHOCYTES % (AUTO) 11.3 % (21-51); MEAN CORPUSCULAR HEMOGLOBIN 29.5 PG (27.0-31.0); MEAN CORPUSCULAR HGB CONC 32.5 g/dL (33.0-36.5); MEAN CORPUSCULAR VOLUME 90.8 FL (78-98); MEAN PLATELET VOLUME 7.9 FL (7.4-10.4); MONOCYTES # (AUTO) 0.7 X10'3 (0-0.9); MONOCYTES % (AUTO) 13.3 % (2-12); NEUTROPHILS # (AUTO) 3.6 X10'3 (1.8-7.7); NEUTROPHILS % (AUTO) 69.3 % (42-75); PLATELET COUNT 184 X10'3 (140-440); RED BLOOD COUNT 4.45 X10'6 (4.70-6.10); RED CELL DISTRIBUTION WIDTH 18.1 % (11.5-14.5); WHITE BLOOD COUNT 5.2 X10'3 (4.5-11.0)
[2021-09-10 01:14] LABS: PARTIAL THROMBOPLASTIN TIME 29 SECONDS (22-32)
[2021-09-10 01:15] LABS: MAGNESIUM 1.9 MG/DL (1.5-2.4); PHOSPHORUS 3.1 MG/DL (2.3-4.5)
[2021-09-10 01:18] LABS: ALANINE AMINOTRANSFERASE 31 U/L (12-78); ALBUMIN 3.4 G/DL (3.4-5.0); ALBUMIN/GLOBULIN RATIO 0.9 (1.1-1.5); ALKALINE PHOSPHATASE 83 IU/L (46-116); ANION GAP 10 (8-16); ASPARTATE AMINO TRANSFERASE 27 U/L (10-37); BLOOD UREA NITROGEN 25 MG/DL (7-18); BUN/CREATININE RATIO 20.7 (5.4-32.0); CALCIUM 8.6 MG/DL (8.5-10.1); CHLORIDE 103 MMOL/L (99-107); CREATININE 1.21 MG/DL (0.60-1.10); GLUCOSE 112 MG/DL (70-104); POTASSIUM 3.5 MMOL/L (3.5-5.1); SODIUM 139 MMOL/L (135-145); TOTAL CARBON DIOXIDE 26.4 MMOL/L (24-32); TOTAL PROTEIN 7.1 G/DL (6.4-8.2); eGFR 61 ML/MIN
[2021-09-10 01:20] LABS: CHOL/HDL RATIO 3.5 (0.00-4.99); CHOLESTEROL 101 MG/DL (0-200); HDL CHOLESTEROL 29 MG/DL (35-60); LDL CHOLESTEROL 68 MG/DL (50-100); TRIGLYCERIDES 50 MG/DL (20-135)
--- NOTE | 2021-09-10 06:32 | NUR ---
Report received from ISSAC Tyler.
[2021-09-10] MEDS: furosemide 10 MG/1 ML 10ml inj IV SCH (07:26)
[2021-09-10] MEDS ORDERED: AMLO5TAB16 PO (07:38)
[2021-09-10] MEDS ORDERED: ERGO500054 PO (07:38)
[2021-09-10] MEDS ORDERED: METF-438 PO (07:38)
[2021-09-10] MEDS ORDERED: FURO40TA4 PO (07:38)
[2021-09-10] MEDS: docusate sod 100mg capsule PO SCH ×2 (07:44→20:00)
[2021-09-10] MEDS ORDERED: PERFLUTREN PROTEIN-A MICROSPHR (Optison) 0.22 MG/ML 3ML VIAL IV PRN (12:40)
--- NOTE | 2021-09-10 13:11 | NUR ---
Report given to ISSAC Sanderson on 3rd floor.
[2021-09-10 14:00] VITALS: BP 142/98
[2021-09-10] MEDS: metFORMIN 500mg tablet PO SCH (17:47)
[2021-09-10 19:00] VITALS: BP 143/75
[2021-09-10] MEDS: apixaban 5mg tablet PO SCH (21:04)
[2021-09-10 22:00] VITALS: BP 127/92
[2021-09-11 02:00] VITALS: BP 118/91
[2021-09-11 06:00] VITALS: BP 116/71
[2021-09-11 06:54] LABS: BASOPHILS # (AUTO) 0.1 X10'3 (0-0.2); EOSINOPHILS # (AUTO) 0.2 X10'3 (0-0.9); HEMATOCRIT 37.9 % (42.0-52.0); HEMOGLOBIN 12.4 g/dl (14.0-17.9); LYMPHOCYTES # (AUTO) 0.6 X10'3 (1.1-4.8); LYMPHOCYTES % (AUTO) 11.1 % (21-51); MEAN CORPUSCULAR HEMOGLOBIN 29.3 PG (27.0-31.0); MEAN CORPUSCULAR HGB CONC 32.6 g/dL (33.0-36.5); MEAN CORPUSCULAR VOLUME 89.8 FL (78-98); MONOCYTES # (AUTO) 0.8 X10'3 (0-0.9); MONOCYTES % (AUTO) 15.3 % (2-12); NEUTROPHILS # (AUTO) 3.4 X10'3 (1.8-7.7); NEUTROPHILS % (AUTO) 68.6 % (42-75); PLATELET COUNT 176 X10'3 (140-440); RED BLOOD COUNT 4.22 X10'6 (4.70-6.10)
[2021-09-11 07:21] LABS: ALANINE AMINOTRANSFERASE 29 U/L (12-78); ALBUMIN 3.1 G/DL (3.4-5.0); ALBUMIN/GLOBULIN RATIO 0.9 (1.1-1.5); ALKALINE PHOSPHATASE 85 IU/L (46-116); ANION GAP 8 (8-16); ASPARTATE AMINO TRANSFERASE 28 U/L (10-37); BILIRUBIN,TOTAL 1.9 MG/DL (0.1-1.0); BLOOD UREA NITROGEN 26 MG/DL (7-18); BUN/CREATININE RATIO 22.6 (5.4-32.0); CALCIUM 8.3 MG/DL (8.5-10.1); CHLORIDE 104 MMOL/L (99-107); CREATININE 1.15 MG/DL (0.60-1.10); GLUCOSE 91 MG/DL (70-104); POTASSIUM 3.5 MMOL/L (3.5-5.1); SODIUM 141 MMOL/L (135-145); TOTAL CARBON DIOXIDE 28.6 MMOL/L (24-32); TOTAL PROTEIN 6.5 G/DL (6.4-8.2); eGFR 65 ML/MIN
[2021-09-11 07:40] LABS: HEMOGLOBIN A1C 7.1 % (4.5-6.2)
[2021-09-11] MEDS: apixaban 5mg tablet PO SCH ×2 (07:54→20:04)
[2021-09-11] MEDS: docusate sod 100mg capsule PO SCH ×2 (07:54→20:00)
[2021-09-11] MEDS: amLODIPine 5mg tablet PO SCH (07:54)
[2021-09-11] MEDS: metFORMIN 500mg tablet PO SCH ×2 (07:55→17:16)
[2021-09-11] MEDS: furosemide 10 MG/1 ML 10ml inj IV SCH (07:55)
[2021-09-11 11:00] VITALS: BP 136/93
[2021-09-11 14:00] VITALS: BP 140/93
--- NOTE | 2021-09-11 14:58 | NUR ---
DM consult: Pt with T2DM, well controlled with A1c 7.1%. Written DM education with RD contact information placed in patient's chart. Pt seen by RD at previous admit 04/08 for written and verbal DM education, A1c 7.5% at that time. Will remain available. Addendum: 09/11/21 at [address] Amended: Links added.
[2021-09-11 18:00] VITALS: BP 145/98
--- NOTE | 2021-09-11 18:23 | NUR ---
GAVE REPORT TO PRUDENCE RN
--- NOTE | 2021-09-11 18:46 | NUR ---
Patient in room [facility] 307. I have received report from INDY DAVENPORT and had the opportunity to ask questions and assume patient care.
[2021-09-11] MEDS ORDERED: pneumococcal 23-VAL P-sac vacc 25 mcg/0.5ml vial IMVAC ONE (19:00)
[2021-09-11] MEDS ORDERED: FLU VACC QS2021-22(6MOS UP)/PF 60 MCG/0.5 ML SYRINGE IM ONE (19:00)
[2021-09-11] MEDS: furosemide 40mg/4ml inj IV SCH (20:04)
[2021-09-11 22:39] VITALS: BP 144/98
[2021-09-12 02:55] VITALS: BP 145/81
--- NOTE | 2021-09-12 06:22 | NUR ---
Problems reprioritized. Patient report given, questions answered & plan of care reviewed with BALJEET DAVENPORT.
[2021-09-12 07:00] VITALS: BP 133/87
[2021-09-12 07:02] LABS: BASOPHILS # (AUTO) 0.1 X10'3 (0-0.2); BASOPHILS % (AUTO) 1.2 % (0-1); EOSINOPHILS # (AUTO) 0.3 X10'3 (0-0.9); EOSINOPHILS % (AUTO) 5.9 % (0-6); HEMATOCRIT 37.4 % (42.0-52.0); HEMOGLOBIN 12.2 g/dl (14.0-17.9); LYMPHOCYTES # (AUTO) 0.6 X10'3 (1.1-4.8); LYMPHOCYTES % (AUTO) 12.8 % (21-51); MEAN CORPUSCULAR HEMOGLOBIN 29.2 PG (27.0-31.0); MEAN CORPUSCULAR HGB CONC 32.7 g/dL (33.0-36.5); MEAN CORPUSCULAR VOLUME 89.5 FL (78-98); MEAN PLATELET VOLUME 7.7 FL (7.4-10.4); MONOCYTES # (AUTO) 0.7 X10'3 (0-0.9); MONOCYTES % (AUTO) 15.4 % (2-12); NEUTROPHILS # (AUTO) 2.9 X10'3 (1.8-7.7); NEUTROPHILS % (AUTO) 64.7 % (42-75); PLATELET COUNT 172 X10'3 (140-440); RED BLOOD COUNT 4.18 X10'6 (4.70-6.10); RED CELL DISTRIBUTION WIDTH 17.7 % (11.5-14.5); WHITE BLOOD COUNT 4.4 X10'3 (4.5-11.0)
[2021-09-12 07:20] LABS: ALANINE AMINOTRANSFERASE 25 U/L (12-78); ALBUMIN/GLOBULIN RATIO 0.9 (1.1-1.5); ALKALINE PHOSPHATASE 82 IU/L (46-116); ANION GAP 8 (8-16); ASPARTATE AMINO TRANSFERASE 25 U/L (10-37); BILIRUBIN,TOTAL 1.7 MG/DL (0.1-1.0); BLOOD UREA NITROGEN 20 MG/DL (7-18); BUN/CREATININE RATIO 18.3 (5.4-32.0); CALCIUM 8.2 MG/DL (8.5-10.1); CHLORIDE 102 MMOL/L (99-107); CREATININE 1.09 MG/DL (0.60-1.10); GLUCOSE 80 MG/DL (70-104); POTASSIUM 3.1 MMOL/L (3.5-5.1); SODIUM 140 MMOL/L (135-145); TOTAL CARBON DIOXIDE 30.5 MMOL/L (24-32); TOTAL PROTEIN 6.5 G/DL (6.4-8.2); eGFR 69 ML/MIN
[2021-09-12] MEDS: docusate sod 100mg capsule PO SCH ×2 (08:00→19:41)
[2021-09-12] MEDS: apixaban 5mg tablet PO SCH ×2 (08:23→19:41)
[2021-09-12] MEDS: amLODIPine 5mg tablet PO SCH (08:23)
[2021-09-12] MEDS: metFORMIN 500mg tablet PO SCH ×2 (08:24→17:36)
[2021-09-12] MEDS: furosemide 40mg/4ml inj IV SCH ×2 (08:24→19:41)
--- NOTE | 2021-09-12 09:47 | NUR ---
PAGER ID: [phone] MESSAGE: [phone] Corby T: please call regarding O2 when you're available. thank you! [phone]
[2021-09-12] MEDS ORDERED: magnesium Cl slow-release 64mg tablet PO PRN (09:55)
[2021-09-12] MEDS ORDERED: potassium Cl 20 mEq SR tablet PO PRN (09:55)
[2021-09-12] MEDS ORDERED: magnesium 4gm in 100ml NS 100 ML IV PRN (09:55)
[2021-09-12] MEDS ORDERED: magnesium 2GM in 50ml NS 50 ML IV PRN (09:55)
[2021-09-12] MEDS ORDERED: potassium CL 10mEq/100ml bag 100 ML IV PRN (09:55)
--- NOTE | 2021-09-12 10:07 | NUR ---
O2 Sat at rest on room air:___% If below 89%: Recovery O2 Sat at rest on ___LPM:___%:___% via (mask/nasal cannula, etc..) No further documentation is necessary. If O2 Sat did not drop below 89% on room air,ambulate patient on room air. O2 Sat while ambulating on room air:84% Recovery O2 Sat while ambulating on 0 LPM:90% No further documentation is necessary. If patient does not drop below 89% while ambulating, he/she does not qualify for home O2.
--- NOTE | 2021-09-12 10:08 | NUR ---
Attempted oxygen qualification with patient. his o2 sat remained above 90% at rest. began ambulation, he eventually dropped to 84%, while walking back to the room patient's oxygen came back up to 90% on room air. by the time he reached the bed patient was at 97% on room air. Patient is aware that he qualifies for home oxygen but he adamantly refuses due to his living situation. MD is aware of this.
[2021-09-12 10:33] VITALS: BP 146/97
[2021-09-12 15:42] VITALS: BP 148/100
[2021-09-12 18:00] VITALS: BP 158/101
--- NOTE | 2021-09-12 18:17 | NUR ---
Problems reprioritized. Patient report given, questions answered & plan of care reviewed with ISSAC Preciado.
--- NOTE | 2021-09-12 18:29 | NUR ---
Patient in room [facility] 307. I have received report from BALJEET DAVENPORT and had the opportunity to ask questions and assume patient care.
[2021-09-12] MEDS: K and/or MAG REPLACEMENT MC SCH (19:38)
[2021-09-12 22:00] VITALS: BP 160/99
[2021-09-12] MEDS: potassium Cl 20 mEq SR tablet PO PRN (22:39)
[2021-09-13 02:00] VITALS: BP 125/87
--- NOTE | 2021-09-13 06:37 | NUR ---
Problems reprioritized. Patient report given, questions answered & plan of care reviewed with STEVE DAVENPORT.
[2021-09-13 06:58] LABS: BASOPHILS % (AUTO) 0.6 % (0-1); EOSINOPHILS # (AUTO) 0.2 X10'3 (0-0.9); EOSINOPHILS % (AUTO) 3.1 % (0-6); HEMATOCRIT 37.3 % (42.0-52.0); HEMOGLOBIN 12.3 g/dl (14.0-17.9); LYMPHOCYTES # (AUTO) 0.4 X10'3 (1.1-4.8); MEAN CORPUSCULAR HEMOGLOBIN 29.5 PG (27.0-31.0); MEAN CORPUSCULAR VOLUME 89.5 FL (78-98); MEAN PLATELET VOLUME 7.7 FL (7.4-10.4); MONOCYTES # (AUTO) 0.6 X10'3 (0-0.9); MONOCYTES % (AUTO) 10.6 % (2-12); NEUTROPHILS # (AUTO) 4.4 X10'3 (1.8-7.7); NEUTROPHILS % (AUTO) 77.7 % (42-75); PLATELET COUNT 182 X10'3 (140-440); RED BLOOD COUNT 4.17 X10'6 (4.70-6.10); RED CELL DISTRIBUTION WIDTH 17.6 % (11.5-14.5); WHITE BLOOD COUNT 5.6 X10'3 (4.5-11.0)
[2021-09-13 07:00] VITALS: BP 123/82
[2021-09-13 07:43] LABS: ALANINE AMINOTRANSFERASE 23 U/L (12-78); ALBUMIN 3.2 G/DL (3.4-5.0); ALBUMIN/GLOBULIN RATIO 0.9 (1.1-1.5); ALKALINE PHOSPHATASE 87 IU/L (46-116); ANION GAP 7 (8-16); ASPARTATE AMINO TRANSFERASE 24 U/L (10-37); BILIRUBIN,TOTAL 2.3 MG/DL (0.1-1.0); BLOOD UREA NITROGEN 15 MG/DL (7-18); BUN/CREATININE RATIO 13.8 (5.4-32.0); CALCIUM 8.6 MG/DL (8.5-10.1); CHLORIDE 100 MMOL/L (99-107); CREATININE 1.09 MG/DL (0.60-1.10); GLUCOSE 85 MG/DL (70-104); POTASSIUM 3.3 MMOL/L (3.5-5.1); SODIUM 137 MMOL/L (135-145); TOTAL CARBON DIOXIDE 29.8 MMOL/L (24-32); TOTAL PROTEIN 6.7 G/DL (6.4-8.2); eGFR 69 ML/MIN
[2021-09-13] MEDS: K and/or MAG REPLACEMENT MC SCH (08:00)
[2021-09-13] MEDS ORDERED: lisinopril 10 MG tablet PO SCH (08:00)
[2021-09-13] MEDS: apixaban 5mg tablet PO SCH (08:32)
[2021-09-13] MEDS: metFORMIN 500mg tablet PO SCH ×2 (08:32→17:35)
[2021-09-13] MEDS: docusate sod 100mg capsule PO SCH (08:33)
[2021-09-13] MEDS: amLODIPine 5mg tablet PO SCH (08:33)
[2021-09-13] MEDS: furosemide 40mg/4ml inj IV SCH (08:33)
[2021-09-13] MEDS: potassium Cl 20 mEq SR tablet PO PRN (09:48)
--- NOTE | 2021-09-13 10:14 | NUR ---
Initial: Pt admit DX CHF exacerbation and hypokalemia per EMR. PO mostly ~100% avg heart healthy/carb controlled diet meeting estimated needs. LBM 09/11 receiving routine colace. No nutrition intervention at this time. Will continue to monitor. Rec: 1. continue carb controlled/heart healthy diet 2. routine bowel care 3. weekly wts Addendum: 09/13/21 at [address] Amended: Links added.
[2021-09-13 11:00] VITALS: BP 141/97
[2021-09-13] MEDS ORDERED: LISI5TAB22 PO (13:45)
[2021-09-13] MEDS ORDERED: CARV3.12 PO (13:45)
[2021-09-13 15:00] VITALS: BP 133/89
--- NOTE | 2021-09-13 18:08 | NUR ---
patient medically stable as per doctor discharge patient back to homeless facility, awaiting patient to be sisal picker by flatbed driver.
== END 2021-09-13 18:06 | disposition home or self-care (01) | DRG 194 ==
LOC: ER 12:16 → ED HOLD 23:44 → UNDOADMIN 23:44 → ED HOLD 23:58 → MED 3N 09-10 13:37
PROVIDERS: ADMIT Family Medicine; ATTEND Family Medicine
PROC: 3E0234Z Introduction of Serum, Toxoid and Vaccine into Muscle, Percutaneous Approach (ICD-10-PCS; principal; 2021-09-11)
PROC: 3E02340 Introduction of Influenza Vaccine into Muscle, Percutaneous Approach (ICD-10-PCS; 2021-09-11)
DX: I11.0 Hypertensive heart disease with heart failure (principal); N17.9 Acute kidney failure, unspecified; E11.65 Type 2 diabetes mellitus with hyperglycemia; F12.10 Cannabis abuse, uncomplicated; I50.43 Acute on chronic combined systolic (congestive) and diastolic (congestive) heart failure; Z20.822 Contact with and (suspected) exposure to COVID-19; R07.89 Other chest pain; Z60.2 Problems related to living alone; J44.9 Chronic obstructive pulmonary disease, unspecified; E87.6 Hypokalemia; Z59.00 Homelessness unspecified; Z86.73 Personal history of transient ischemic attack (TIA), and cerebral infarction without residual deficits; Z87.891 Personal history of nicotine dependence; Z23 Encounter for immunization; Z83.3 Family history of diabetes mellitus; Z82.49 Family history of ischemic heart disease and other diseases of the circulatory system; Z82.3 Family history of stroke; Z79.899 Other long term (current) drug therapy; Z79.82 Long term (current) use of aspirin; Z71.51 Drug abuse counseling and surveillance of drug abuser; Z79.01 Long term (current) use of anticoagulants
CPT/HCPCS: 36415; 71045; 80053; 80061; 80305; 81001; 82948; 83036; 83735; 83880; 84100; 84484; 85007; 85025; 85610; 85730; 87081; 87635; 90732; 93005; 93306; 97116; 97161; 97530; 99285; G0378; J1940